=== PATIENT | male | born 1960 | race Caucasian/White ===

== ENCOUNTER 2020-07-23 21:37 | Emergency (ER) | payer MEDICARE, OTHER, SELFPAY ==
[2020-07-23 21:37] VITALS: BP 137/92; PULSE 79; RESP 20; TEMP 36.8; O2SAT 96; BMI 30.7
--- NOTE | 2020-07-23 22:18 | XR_ITS ---
PROCEDURE: XR CHEST 2V CLINICAL HISTORY: cough COMPARISON: No exams were available for comparison FINDINGS: The cardiomediastinal silhouette and pulmonary vascularity are within normal limits. There are mild atelectatic changes in the lingula. The remaining lungs are clear. Degenerative changes of the AC joints. IMPRESSION: Atelectatic changes within the lingula Dictated by: Greg Bernard MD 07/24/2020 04:53 Greg Bernard MD in [place] 07/24/2020 04:53
--- NOTE | 2020-07-23 22:36 | HMH.EDURI ---
ED Disposition Clinical Impression: Bronchitis Disposition: Home, Self-Care Condition on Discharge: Good Instructions: DI for Acute Bronchitis Additional Instructions: call pcp for follow up and discuss lisinopril and use meds Prescriptions: levoFLOXacin [Levaquin 500mg tab] 500 mg PO DAILY #7 tab Transmission Status: Pending to [email or web address] predniSONE [Prednisone 20mg Tab] 20 mg PO BID #10 tab Transmission Status: Pending to [facility] Benzonatate [Tessalon Perle 100mg Cap] 100 mg PO TID #30 cap Transmission Status: Pending to [facility] Referrals: PCP,No [Primary Care Provider] - - Critical Care Critical Care Time: No Attestation: On 07/23/20, the high probability of a clinically significant, sudden or life threatening deterioration of the following system(s) required my full and direct attention, intervention and personal management. The time I documented below is in addition to time spent performing reported procedures but includes the following listed in this critical care notation. Medical Decision Making - Medical Records Medical records reviewed: Yes: I reviewed the patient's medical records. - Adiel Inquiry Pt receiving controlled substance: No Vital Signs: 07/23/20 21:37 Temperature 98.3 F Temperature Source Oral Pulse Rate [Right Radial] 79 Respiratory Rate 20 Blood Pressure [Left Arm] 137/92 H Blood Pressure Mean [Left Arm] 107 Blood Pressure Source [Left Arm] Automatic Cuff Blood Pressure Position [Left Arm] Sitting 02 Sat by Pulse Oximetry 96 Oxygen Delivery Method Room Air - Lab Data Lab results reviewed: Yes: I reviewed the patient's lab results. Lab Results 07/23/20 22:25: Influenza Type A Ag Negative, Influenza Type B Ag Negative 07/23/20 22:25: Group A Strep Rapid Negative Orders (Tests/Meds): ED MEDICATIONS Discontinued Medications Generic Name Dose Route Start Last Admin Trade Name Freq PRN Reason Stop Dose Admin Dexamethasone Sodium Phosphate 10 mg 07/23/20 22:18 07/23/20 22:20 Dexamethasone 4mg/Ml 1ml Vial IM 07/23/20 22:19 10 mg ONCE ONE Administration ORDERS Category Date Time Status XR chest 2V Stat Exams 07/23/20 22:18 Taken Covid-19 Nasal PCR ([facility]) Routine Lab 07/23/20 22:25 Received Strep Screen Confirmation Stat Micro 07/23/20 22:25 Received - Radiology Data #1 Image(s): Chest Image Reviewed: Yes I reviewed the patient's radiology image Preliminary Findings: Normal/NAD URI/Sore Throat HPI - General Chief Complaint: Upper Respiratory Infection Stated Complaint: Cough Time Seen by Provider: 07/23/20 21:50 Mode of Arrival: Ambulatory Source of Information: Patient, Medical Record Limitations: No Limitations Description of Symptoms (Recalled from ER Triage Doc. by RN): Pt c/o non-productive cough and diarrhea for a week, reports diarrhea has stopped 2 days ago. Denies fever, SOA, pain, N/V. He doers states he has had somne loss of taste. No known contact with anyone with COVID 19. 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 and had gi consult MD Complaint: cough Onset (ago): day(s) Duration: intermittent Severity: moderate Able to tolerate fluids by mouth: Yes Associated symptoms: denies other symptoms Treatments prior to arrival: none - Related Data Home Medications Medication Instructions Recorded Confirmed Aspirin [Aspirin 325mg Tab] 325 mg PO DAILY 07/23/20 07/23/20 Atorvastatin Calcium [Lipitor 10mg 10 mg PO HS 07/23/20 07/23/20 Tab] lisinopriL [Lisinopril 20mg Tab] 20 mg PO DAILY 07/23/20 07/23/20 Previous Rx's Medication Instructions Recorded Benzonatate [Tessalon Perle 100mg 100 mg PO TID #30 cap 07/23/20 Cap] levoFLOXacin [Levaquin 500mg 500 mg PO DAILY #7 tab 07/23/20 tab] predniSONE [Prednisone 20mg 20 mg PO BID #10 tab 07/23/20 Tab] Allergies Aller
[2020-07-23 22:57] LABS: Strep Scrn Group A (Rapid) Negative (Negative)
[2020-07-24 00:13] VITALS: BP 130/85; PULSE 84; RESP 18; TEMP 36.7; O2SAT 98
--- NOTE | 2020-07-24 06:55 | PC.NURSE ---
maryana hector RN informed patient of covid results per dr. arechiga request. informed pt that he does not need to get the prescriptions that were prescribed and to self isolate for 10 days. call primary care for possibly phone follow up and for further instructions.
== END 2020-07-24 00:15 | disposition home or self-care (01) ==
PROVIDERS: Emergency Provider Emergency Medicine
DX: U07.1 COVID-19 (principal)
CPT/HCPCS: 71046; 87275; 87276; 87430; 96372; 99283; U0003